=== PATIENT | female | born 2000 | race Hispanic/Latino ===

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

== ENCOUNTER 2021-04-15 10:28 | Emergency (ER) | payer OTHER | END 2021-04-15 11:21 | disposition home or self-care (01) | LOC: ERS 10:28 | DX: N93.9 Abnormal uterine and vaginal bleeding, unspecified (principal) | CPT/HCPCS: 99283 ==